=== PATIENT | female | born 1960 | race Caucasian/White ===

== ENCOUNTER 2017-09-26 19:48 | Inpatient (IN) ==
[2017-09-26] MEDS ORDERED: Temazepam 15 MG Capsule PO PRN (19:59)
[2017-09-26] MEDS ORDERED: Morphine Inj 4 MG/ML Vial IV.PUSH PRN (20:01)
--- NOTE | 2017-09-26 22:12 | P.HPIM ---
History of Present Illness Service: [facility]ist Primary Care Physician: Marianna Ramos MD Chief Complaint: Fall with subsequent right upper arm pain History of Present Illness: Mrs. Rios is a 57 year old female with a history of osteoporosis and several fractures, lupus, rheumatoid arthritis, osteoarthritis, and endometrial cancer ( treated with radiation and hysterectomy) who presented to the ER at [facility] complaining of a trip and fall at work resulting in severe right elbow swelling and pain. An x-ray done in the ED, showed a right comminuted fracture of the proximal radius and ulna. Dr. Borjas was the orthopedic physician psychologist educational and she recommended transfer to [facility] in [facility] with consult for Dr. Camacho in a.m. for surgical correction. The patient is seen in the CDU. 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 She states she tripped over the back of her husbands shoe and they both fell with her landing on top. She had immediate pain and inability to bear any weight on the right forearm with disfigurement noted. Denies chest pain, dizziness or syncope prior to fall or hitting her head upon falling. She is reporting a pain level of 10/10, aching right elbow pain. The pain is worse with movement and was relieved fully by IV Fentanyl in [facility] and temporarily relieved with IV Morphine in [facility] but the relief lasted only 45 minutes. She reports taking Hydrocodone 10/325 mg PRN at home and is followed by pain management and quality control lead Dr. Alarcon (partner to Dr. Vásquez) for lupus and rheumatoid arthritis. She is also complaining of bilateral knee pain. Xrays at [facility] showed left knee with degenerative changes and no fracture and right knee with degenerative changes, joint effusion, and no fracture. Abnormal UA with possible UTI at [facility]. She was given one dose of Ceftriaxone in ED. Denies any recent fevers, chills, chest pain, shortness of breath, or urinary frequency, dysuria, or hematuria. - Diagnosis (1) Fracture of proximal end of left radius and ulna Inpatient Certification: I certify that the inpatient services were ordered in accordance with Medicare regulations governing the order. This includes certification that hospital inpatient services are reasonable and necessary and in the case of services not specified as inpatient-only under 42 CFR 419.22(n), that they are appropriately provided as inpatient services in accordance to with the 2-midnight benchmark under 43 CFR 412.3(e) Estimated Total Length of Stay (Days): 3 Plans for Post Hospital Care: Home Review of Systems All other systems reviewed negative except as stated in HPI [facility] - History History Provided By: Patient - Medical History Medical History: Medical History (Last Updated 09/27/17 @ 04:02 by ZAMZAM Isaacs) Endometrial cancer Hx of heartburn Lupus Osteoarthritis Osteoporosis Rheumatoid arthritis Right wrist fracture - Surgical History Surgical History: Surgical History (Last Updated 09/27/17 @ 04:04 by ZAMZAM Isaacs) History of hysterectomy History of open reduction and internal fixation (ORIF) procedure - Family History Family History: Family History (Last Updated 09/27/17 @ 04:00 by ZAMZAM Isaacs) Grandparent Kidney disease Diabetes mellitus Mother Endometrial cancer Father Diabetes mellitus Father Heart disease - Tobacco History Tobacco Use In Past 30 Days: No Smoking Status: Former smoker Tobacco Type: Cigarettes Packs Per Day: 1 Years Smoked: 20 Smoking End Date: 12/17/1998 - Alcohol History How Often Do You Have a Drink Containing Alcohol: Monthly or less (one drink every 3 - 4 months) - Substance Use History Substance History: No History of Abuse - Travel History History of Recent Travel: No Recent Travel in the [facility] Within the Last 8 Weeks: No Medications and Allergies Active Medications: Active Medications Sodium Chloride (Ns Inj) 1,000 mls @ 100 mls/hr IV.CONT .Q10H KELLEY Morphine Sulfate (Morphine Inj) 2 mg IV.PUSH Q3H PRN PRN Reason: Pain 4-10; If Uable To Take Po Ondansetron HCl (Zofran Odt) 4 mg PO Q6H PRN PRN Reason: NAUSEA OR VOMITING Temazepam (Restoril) 15 mg PO HS PRN PRN Reason: INSOMNIA Allergies Allergy/AdvReac Type Severity Reaction Status Date / Time penicillin G Allergy Severe Anaphylaxis Unverified 09/27/17 03:53 Home Medications Medication Instructions Recorded Confirmed Type Fish Oil 09/27/17 History Multi Vitamin 09/27/17 History Vitamin C 09/27/17 History abaloparatide [Tymlos] DAILY NEB 09/27/17 History calcium carbonate [Calcium 600] 600 mg PO BID 09/27/17 09/27/17 History gabapentin 09/27/17 09/27/17 History gabapentin 100 mg PO BID 09/27/17 09/27/17 History glucosamine sulfate 09/27/17 History hydrocodone-acetaminophen 1 tab PO DAILY 09/27/17 09/27/17 History hydroxychloroquine [Plaquenil] 200 mg PO BID 09/27/17 09/27/17 History magnesium 250 mg PO DAILY 09/27/17 09/27/17 History meloxicam 7.5 mg PO DAILY 09/27/17 09/27/17 History methotrexate sodium 9 mg PO QWEEK 09/27/17 09/27/17 History omeprazole magnesium [Prilosec OTC] 20 mg PO DAILY 09/27/17 09/27/17 History prednisone 5 mg PO BID 09/27/17 09/27/17 History timolol 1 drp OPHTHALMIC (EYE) BID 09/27/17 09/27/17 History tofacitinib [Xeljanz] 5 mg PO Q12H 09/27/17 09/27/17 History valacyclovir 1,000 mg PO DAILY 09/27/17 09/27/17 History Exam Vital signs: Vital Signs 09/26/17 20:00 Temperature 98.1 F Pulse Rate 67 Respiratory Rate 16 Blood Pressure 165/87 H Pulse Oximetry 97 - Constitutional mild distress (appears painful), morbidly obese - Routine HEENT Exam Head: Present: normocephalic, atraumatic ENT: Present: mucous membranes moist - Routine Respiratory Exam Present: decreased breath sounds (at bases - secondary to body habitus), CTA bilaterally. Absent: accessory muscle use, respiratory distress, wheezes, crackles - Routine Cardiovascular Exam Present: RRR, S1, S2, murmur (I/ systolic murmur best heard right sternal border, second IC space.). Absent: gallop, rubs - Routine Abdominal Exam Present: soft, normoactive bowel sounds. Absent: tenderness, distended - Routine Extremities Exam Present: pulses intact, normal capillary refill, tenderness (right elbow region) . Absent: cyanosis - Routine Skin Exam Present: intact, warm - Routine Neurological Exam Present: alert, oriented X3, normal speech Results - Labs Labs: WBC 13.3 with left shift at [facility] - records personally reviewed Hgb 12.8, HCT 40.3 Na 139, K+ 4.4, BUN 22, Creatinine 0.56, and glucose 92 Urinalysis with 3+ leukocyte estrace, bacteria, WBCs, RBCs, and many calcium oxylate crystals - Imaging Imaging done in the ED at [facility]: right elbow x-ray showed a right comminuted fracture of the proximal radius and ulna - right knee xray showed degenerative changes, joint effusion, no fracture and left knee showed degenerative changes and no fracture CXR with cardiomegaly but no active pulmonary disease . Caprini VTE Risk Assessment Caprini VTE Risk Assessment: Moderate/High Risk (score >= 2) Caprini Risk Assessment Model: Point Value = 1 Point Value = 2 Point Value = 3 Point Value = 5 Age 41-60 Minor surgery BMI > 25 kg/m2 Swollen legs Varicose veins or History of unexplained or recurrent spontaneous Oral contraceptives or hormone replacement Sepsis (< 1 month) Serious lung disease, including pneumonia (< 1 month) Abnormal pulmonary function Acute myocardial infarction Congestive heart failure (< 1 month) History of inflammatory bowel disease Medical patient at bed rest Age 61-74 Arthroscopic surgery Major open surgery (> 45 min) Laparoscopic surgery (> 45 min) Malignancy Confined to bed (> 72 hours) Immobilizing plaster cast Central venous access Age >= 75 History of VTE Family history of VTE Factor V Leiden Prothrombin [id number] Lupus anticoagulant Anticardiolipin antibodies Elevated serum homocysteine Heparin-induced thrombocytopenia Other congenital or acquired thrombophilia Stroke (< 1 month) Elective arthroplasty Hip, pelvis, or leg fracture Acute spinal cord injury (< 1 month) Prophylaxis Regimen: Total Risk Factor Score Risk Level Prophylaxis Regimen 0-1 Low Early ambulation 2 Moderate Order ONE of the following: *Sequential Compression Device (SCD) *Heparin 5000 units SQ BID 3-4 Higher Order ONE of the following medications: *Heparin 5000 units SQ TID *Enoxaparin/Lovenox 40 mg SQ daily (WT < 150 kg, CrCl > 30 mL/min) *Enoxaparin/Lovenox 30 mg SQ daily (WT < 150 kg, CrCl > 10-29 mL/min) *Enoxaparin/Lovenox 30 mg SQ BID (WT < 150 kg, CrCl > 30 mL/min) AND/OR *Sequential Compression Device (SCD) 5 or more Highest Order ONE of the following medications: *Heparin 5000 units SQ TID (Preferred with Epidurals) *Enoxaparin/Lovenox 40 mg SQ daily (WT < 150 kg, CrCl > 30 mL/min) *Enoxaparin/Lovenox 30 mg SQ daily (WT < 150 kg, CrCl > 10-29 mL/min) *Enoxaparin/Lovenox 30 mg SQ BID (WT < 150 kg, CrCl > 30 mL/min) AND *Sequential Compression Device (SCD) Assessment and Plan - Assessment (1) Fracture of proximal end of left radius and ulna Code(s): S52.102A - Unspecified fracture of upper end of left radius, initial encounter for closed fracture; S52.002A - Unspecified fracture of upper end of left ulna, initial encounter for closed fracture Status: Acute - Plan Mrs. Rios is a 57 year old female with a history of osteoporosis and several fractures, lupus, rheumatoid arthritis, osteoarthritis, and endometrial cancer ( treated with radiation and hysterectomy) who presented to the ER at [facility] complaining of a trip and fall at work resulting in severe right elbow swelling and pain. An x-ray done in the ED, showed a right comminuted fracture of the proximal radius and ulna. Dr. Borjas was the orthopedic physician psychologist educational and she recommended transfer to [facility] in [facility] with consult for Dr. Camacho in a.m. for surgical correction. Abnormal UA was consistent with UTI. Fracture of proximal left ulna and radius - NPO - Dilaudid 1 mg IV q4h PRN pain > 4 - Consult orthopedics - appreciate assistance UTI - repeat UA with C/S if indicated - Ceftriaxone 1 gm IV q24h - Await urine culture results and adjust treatment accordingly Heart murmur on exam, cardiomegaly noted on chest xray report reviewed from [facility] - patient denies history of heart problems or heart murmur - may be transient from high BP noted here - denies history of high bp - bp may be elevated due to pain - if persists, should f/u with pcp outpatient - patient is asymptomatic cardiovascularly DVT prophylaxis - SCDs - chemoprophylaxis contraindicated due to impending surgical repair of fractures . Discussed Condition With: Patient, RN, and Dr. Zacarias
[2017-09-26] MEDS: Sod Chloride 0.9% Inj 1,000 ML IV.CONT SCH (23:10)
[2017-09-26] MEDS: HYDROmorphone PF Inj 2 MG/ML Vial IV.PUSH PRN (23:11)
[2017-09-27 01:31] LABS: Bacteria,Urine Occasional /hpf; Bilirubin,Urine Negative (Negative); Clarity,Urine Hazy (Clear); Color,Urine Yellow (Yellw/Straw); Glucose,Urine (UA) Negative (Negative); Hyaline Casts,Urine 3 /lpf (0-3); Leukocyte Esterase,Urine Small (Negative); Mucus,Urine Few /lpf (Occasional); Nitrite,Urine Negative (Negative); Specific Gravity,Urine 1.021 (1.002-1.035); Squamous Epithelial Cell,Urine 1 /hpf (0-5)
[2017-09-27] MEDS: HYDROmorphone PF Inj 2 MG/ML Vial IV.PUSH PRN (04:46)
[2017-09-27] MEDS ORDERED: Metoprolol Tartrate 25 MG Tablet PO SCH (08:15)
[2017-09-27] MEDS ORDERED: Chlorhexidine Gluconate 2% 1 Pack (2 Cloths) TOPICAL SCH (08:15)
--- NOTE | 2017-09-27 08:29 | MB ---
cc: Mark Camacho MD DATE: 09/27/2017 REASON FOR CONSULTATION: Right proximal ulnar fracture with radial head fracture dislocation. HISTORY OF PRESENT ILLNESS: Jessy is a 57-year-old female who had history of osteoporosis, rheumatoid arthritis, lupus, endometrial cancer. She had a fall. 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 She initially went to [facility]. She was found to have a complex fracture of her right elbow. She was subsequently transferred to [facility] for definitive treatment. She is currently awake and alert in the emergency department. She complains of mild right knee pain. She complains of more severe right elbow pain. Pain is worse with movement and is improved with rest. She denies dizziness, syncope, or loss of consciousness. PAST MEDICAL HISTORY: Illnesses: Reflux, lupus, osteoporosis, rheumatoid arthritis, history of endometrial cancer. ALLERGIES: PENICILLIN. PAST SURGICAL HISTORY: Hysterectomy and ORIF of wrist. MEDICATIONS: 1. Multivitamin. 2. Vitamin C. 3. Tymlos. 4. Gabapentin. 5. Plaquenil. 6. Hydrocodone. 7. Magnesium. 8. Meloxicam. 9. Methotrexate. 10. Omeprazole. 11. Prednisone. 12. Timolol. 13. Valacyclovir. FAMILY HISTORY: Positive for heart disease and diabetes in her father and endometrial cancer in her mother, diabetes in a grandparent. SOCIAL HISTORY: The patient denies alcohol, tobacco or drug use. REVIEW OF SYSTEMS: The patient denies fevers or chills, weight loss, headache, visual changes, hearing loss, chest pain, palpitations, shortness of breath, nausea, vomiting, urinary or bowel changes, neck or back pain, skin rashes, weakness or numbness of extremities, anxiety or depression. She complains of right knee pain and right elbow pain. LABORATORY DATA: The patient's urinary analysis reveals occasional bacteria with small leukocyte esterase. X-RAYS: X-rays of the right elbow were reviewed from [facility]. X-rays reveal a complex right elbow fracture dislocation. There is a comminuted fracture of the proximal ulna with radial head fracture dislocation. PHYSICAL EXAMINATION: GENERAL: The patient is a 57-year-old female. She is awake and alert. She is moderately overweight. She is in no acute distress. VITAL SIGNS: Temperature 98.2, pulse 74, respirations 18, blood pressure 137/83, O2 saturations 95% on room air. HEENT: Head: The patient is normocephalic. Pupils are equal. NECK: Soft, nontender. The trachea is in the midline. ABDOMEN: Soft, nontender, nondistended. EXTREMITIES: Examination of right arm reveals no tenderness around her shoulder, wrist or fingers. She has intact sensation in all fingers. There has good capillary refill in all fingers. She has mild swelling of the elbow. She has pain with any elbow motion. Examination of the left arm reveals no pain with shoulder, elbow and wrist motion. Skin is intact. Radial pulses palpable. Sensation is intact. Examination of right leg reveals no pain with hip or ankle motion. She has mild bruising and swelling of her knee. There appears to be a small joint effusion present. Her knee is stable to varus and valgus stresses. She has a small superficial abrasion on her anterior knee. Sensation is intact in the right foot. Examination of left leg reveals no pain with hip, knee or ankle motion. Skin is intact. Dorsalis pedis pulses palpable. Sensation intact to left foot. IMPRESSION: 1. Rheumatoid arthritis. 2. Lupus. 3. Osteoporosis. 4. Reflux. 5. Right elbow fracture dislocation. PLAN: Treatment options were discussed with the patient. At this point, I would recommend open reduction and internal fixation of the right ulna. She will also need treatment of the right radial head fracture dislocation. I explained to her that we may excise the fracture fragment versus possibly perform open reduction and internal fixation of the fracture fragment versus possible radial head replacement. Risks and benefits of surgery were discussed in depth with the patient and consent was obtained. Risks of surgery including bleeding, infection, injury to arteries, nerves or blood vessels, elbow stiffness, loss of motion, elbow arthritis, painful hardware, wound infection, injury to ulnar nerve, injury to arteries, nerves and blood vessels, weakness, numbness of the hand, as well as medical complications associated with anesthesia were discussed. All questions were answered. I will plan on surgery today. A mid-level provider in my office, nurse practitioner or PA, may see this patient on a follow-up basis and continue to implement the objective of this plan including: Starting or adjusting medications, injections of muscle, tendon, bursa or joints, cast application, orthotic or brace application, physical therapy, further radiographic studies including x-ray, MRI, CT, ultrasounds or bone scan, vascular studies, neurologic studies, or other specialist consultations, and proceeding with surgical management as appropriate. MD ROSALINDA Alcala/JOSEPHINE , 08:01 AM , 08:27 AM
[2017-09-27] MEDS: Sod Chloride 0.9% Inj 1,000 ML IV.CONT SCH (08:45)
[2017-09-27 08:46] LABS: Baso % (Auto) 0.2 % (0.0-2.0); Eos % (Auto) 0.4 % (0.0-4.0); Hematocrit 37.1 % (35.0-46.0); Hemoglobin 12.2 gm/dL (11.6-15.3); Lymph # (Auto) 0.5 th/mm3 (1.0-4.8); Lymph % (Auto) 6.3 % (9.0-44.0); Mean Corpuscular HGB Conc 32.9 % (32.0-36.0); Mean Corpuscular Hemoglobin 31.4 pg (27.0-34.0); Mean Corpuscular Volume 95.4 fL (80.0-100.0); Mono % (Auto) 11.8 % (0.0-8.0); Neut # (Auto) 6.6 th/mm3 (1.8-7.7); Neut % (Auto) 81.3 % (16.0-70.0); Platelet Count 164 th/mm3 (150-450); Red Blood Count 3.89 mil/mm3 (4.00-5.30); White Blood Count 8.1 th/mm3 (4.0-11.0)
[2017-09-27] MEDS: predniSONE 5 MG Tablet PO SCH ×2 (08:49→20:02)
[2017-09-27] MEDS: Magnesium Oxide 400 MG Tablet PO SCH (08:49)
[2017-09-27] MEDS: Gabapentin 100 MG Capsule PO SCH ×2 (08:49→20:02)
[2017-09-27] MEDS: Pantoprazole Sodium 20 MG DR Tablet PO SCH (08:50)
[2017-09-27] MEDS: Timolol 0.25% Drops 5 ML Bottle EACH EYE SCH ×2 (08:50→22:41)
[2017-09-27] MEDS: Calcium Carbonate 500 MG Tablet PO SCH ×2 (08:50→20:02)
[2017-09-27] MEDS: Hydroxychloroquine 200 MG Tablet PO SCH ×2 (08:50→20:02)
[2017-09-27] MEDS: valACYclovir 500 MG Tab PO SCH (08:51)
[2017-09-27] MEDS ORDERED: TOFACITINIB 5 MG PO SCH (09:00)
[2017-09-27] MEDS ORDERED: Sodium Chlor 0.9% Inj 500 ML IV.SIG SCH (09:00)
[2017-09-27 09:16] LABS: Alanine Aminotransferase 34 U/L (10-53)
[2017-09-27 09:17] LABS: Alkaline Phosphatase 48 U/L (45-117)
[2017-09-27 09:18] LABS: Albumin 3.3 g/dL (3.4-5.0); Anion Gap 10 meq/L (5-15); Aspartate Aminotransferase 21 U/L (15-37); Blood Urea Nitrogen 20 mg/dL (7-18); Calcium 8.9 mg/dL (8.5-10.1); Carbon Dioxide 24.3 meq/L (21.0-32.0); Chloride 105 meq/L (98-107); Glomerular Filtration Rate Greater Than 89 mL/min (>89); Glucose,Random 95 mg/dL (74-106); Sodium 139 meq/L (136-145)
[2017-09-27 09:21] LABS: Potassium 4.1 meq/L (3.5-5.1)
--- NOTE | 2017-09-27 09:26 | P.PN ---
Subjective Interval history: Follow up for right radius/ulna fracture, UTI. The patient is seen just prior to going for surgery. She reports continue right arm pain, temporarily relieved by pain medication. Denies any distal RUE numbness/tingling. She reports nausea with an episode of vomiting shortly after receiving IV dilaudid. She states she had morphine and fentanyl at [facility] which did not make her nauseous however did not relieve her pain. She has no other medical complaints at this time including no fever/chills, chest pain, palpitations, shortness of breath, or abdominal complaints. Physical Exam Vital signs: Vital Signs 09/26/17 20:00 09/27/17 00:00 09/27/17 01:33 Temperature 98.1 F 98.4 F Pulse Rate 67 71 Respiratory Rate 16 16 18 Blood Pressure 165/87 H 174/90 H Pulse Oximetry 97 92 L 09/27/17 04:00 09/27/17 06:06 09/27/17 08:00 Temperature 98.2 F 97.9 F Pulse Rate 74 66 Respiratory Rate 18 18 20 Blood Pressure 137/83 176/82 H Pulse Oximetry 95 93 L Intake & Output 09/26/17 09/27/17 09/27/17 18:59 06:59 18:59 Weight 122.016 kg Other: Weight On Admission 122.016 kg Narrative: GENERAL: Well-nourished, well-developed obese middle-aged female patient in [facility]. SKIN: Warm and dry. No rash. HEENT: Normocephalic. Atraumatic. Pupils equal and round. Mucous membranes pink and moist. NECK: Supple. Trachea midline. CARDIOVASCULAR: Regular rate and rhythm. 1/6 systolic murmur. RESPIRATORY: No accessory muscle use. Clear to auscultation. Breath sounds equal bilaterally. GASTROINTESTINAL: Abdomen soft, non-tender, nondistended. Normoactive bowel sounds x4. MUSCULOSKELETAL: No obvious deformities. Extremities without clubbing, cyanosis , or edema. RUE in sling, distal sensation intact with brisk capillary refill. NEUROLOGICAL: Awake and alert. No obvious cranial nerve deficits. Motor grossly within normal limits. Moving all extremities spontaneously. Normal speech. Results - Labs CBC & Chem 7: 09/27/17 08:02 09/27/17 08:02 Laboratory Results - last 24 hr 09/27/17 09/27/17 09/27/17 01:10 08:02 08:02 WBC 8.1 RBC 3.89 L Hgb 12.2 Hct 37.1 MCV 95.4 MCH 31.4 MCHC 32.9 RDW 16.0 Plt Count 164 MPV 8.0 Neut % (Auto) 81.3 H Lymph % (Auto) 6.3 L [place] % (Auto) 11.8 H Eos % (Auto) 0.4 Baso % (Auto) 0.2 Neut # (Auto) 6.6 Lymph # (Auto) 0.5 L [place] # (Auto) 1.0 H Eos # (Auto) 0.0 Baso # (Auto) 0.0 WBC Differential . Differential Comment Auto diff final Sodium 139 Potassium 4.1 Chloride 105 Carbon Dioxide 24.3 Anion Gap 10 BUN 20 H Creatinine 0.58 Estimated GFR Greater than 89 Random Glucose 95 Calcium 8.9 Total Bilirubin 0.5 AST 21 ALT 34 Alkaline Phosphatase 48 Total Protein 6.0 L Albumin 3.3 L Urine Color Yellow Urine Clarity Hazy H Urine pH 5.0 Ur Specific [place] 1.021 Urine Protein Negative Urine Glucose (UA) Negative Urine Ketones Negative Urine Occult Blood Negative Urine Nitrate Negative Urine Bilirubin Negative Urine Urobilinogen Less than 2 Ur Leukocyte Esterase Small H Urine RBC 1 Urine WBC 36 H Ur Squamous Epith Cells 1 Urine Bacteria Occasional H Hyaline Casts 3 Urine Mucus Few H Micro UA Comment Culture indicated Urine Culture Comments Culture indicated Assessment and Plan - Plan 57 year old female with a history of osteoporosis and several fractures, lupus, rheumatoid arthritis, osteoarthritis, and endometrial cancer (treated with radiation and hysterectomy) who presented to the ER at [facility] complaining of a trip and fall at work resulting in severe right elbow swelling and pain. An x-ray done in the ED showed a right comminuted fracture of the proximal radius and ulna. Dr. Borjas was the orthopedic physician legal nurse consultant and she recommended transfer to [facility] in [facility] with consult for Dr. Camacho in a.m. for surgical correction. Abnormal UA was consistent with UTI. Fracture of proximal left ulna and radius - Keep NPO - Dilaudid 1 mg IV q4h PRN pain > 4, zofran prn nausea - Consult orthopedics - plan for surgery today - PT eval UTI: diagnosed on admission at - repeat UA shows small leuks and WBCs - Continue antibiotics with Ceftriaxone 1 gm IV q24h - Await urine culture results and adjust treatment accordingly Heart murmur on exam, cardiomegaly noted on chest xray report reviewed from [facility] - patient denies history of heart problems or heart murmur - may be transient from high BP noted here, denies history of hypertension, BP likely elevated due to pain - if persists, should f/up with pcp as outpatient - patient is asymptomatic cardiovascularly DVT prophylaxis- teds/SCDs - chemoprophylaxis contraindicated due to upcoming surgical repair of fractures Discharge Planning: Discharge pending surgery today, PT eval, and clearance from orthopedics.
[2017-09-27] MEDS ORDERED: Lidocaine PF 1% Inj 5 ML Syringe INFILTRATN ONE (10:48)
[2017-09-27] MEDS ORDERED: Succinylcholine Inj 100 MG/5 ML Syringe IV.PUSH ONE (10:48)
[2017-09-27] MEDS ORDERED: Glycopyrrolate Inj 1 MG/5 ML Syringe IV.PUSH ONE (10:48)
[2017-09-27] MEDS ORDERED: Neostigmine Inj 5 MG/5 ML Syringe IV.PUSH ONE (10:48)
[2017-09-27] MEDS ORDERED: ceFAZolin 2 GM Premix Inj 0 GM/0 ML PIGGYBACK IV.SIG ONE (11:03)
[2017-09-27] MEDS ORDERED: Clindamycin Inj 600 MG/4 ML Vial ONE (12:10)
[2017-09-27] MEDS ORDERED: Bisacodyl 10 MG Supp RECTAL PRN (13:51)
[2017-09-27] MEDS ORDERED: Naloxone Inj 0.4 MG/ML Vial IV.PUSH PRN (13:51)
[2017-09-27] MEDS ORDERED: Post-op Orders (for Pharmacy) OTHER STA (13:51)
[2017-09-27] MEDS ORDERED: Promethazine 25 MG Supp RECTAL PRN (13:51)
[2017-09-27] MEDS ORDERED: Sodium Chlor 0.9% Inj 250 ML IV.SIG SCH (14:00)
--- NOTE | 2017-09-27 14:02 | P.OP ---
Date of procedure: 09/27/17 Procedure: Open treatment of right elbow fracture dislocation, open reduction internal fixation right proximal ulna, treatment of radial head fracture with implant arthroplasty Implants: Stuart proximal ulna plate, Biomet size 7 stem with size 22+12 radial head Surgeon: Mark Lopez MD Rug Clipper: Sheldon Martinez PA-C The surgical procedure was assisted by my physician assistant counsel. My P.A. presence was necessary throughout this case for the manipulation and positioning of the surgical extremity. My P.A. was assisting me throughout the duration of this procedure. The skill set of a physician assistant counsel was medically necessary to complete this procedure. During the surgical case the surgical nurse practitioner was working at the back table and the physician assistant counsel was directly assisting me. Operation and Findings: Patient was seen and evaluated preoperatively. Patient was found to have a displaced intra-articular olecranon fracture with fracture dislocation of the radial head. The risk and benefits of the surgery were discussed in depth and informed consent was obtained. Risk of surgery include bleeding, infection, painful hardware, wound, case, elbow stiffness, loss of motion, elbow arthritis , injuries to arteries nerves or blood vessels, weakness and numbness of hand, as well as medical complications associated with general anesthesia. All questions were answered. Patient was brought to operating room. IV sedation and anesthesia were administered. Patient was placed into a lateral decubitus position. Timeout procedure was performed. IV antibiotics were administered prior to incision. The operative arm was prepped with alcohol followed by Hibiclens and draped in usual sterile fashion. Procedure began with a 6 inch incision over the olecranon and proximal ulna. Subcutaneous tissue dissected with Bovie. Fracture site was visualized. Fascia was elevated around the fracture site. There was mild comminution of the fracture site. Fracture fragments were gently manipulated. A fracture tenaculum was used to aid in reduction. Each fragment keyed in excellent alignment. Multiple K wires were used to hold provisional fixation. A Stuart proximal ulna plate was selected. Plate was provisionally held with K wires 3.5 cortical screws were used to compress plate to bone. Multiple cortical screws were placed in the ulna shaft. Multiple locking screws were placed in the proximal ulna. All screws were predrilled and premeasured for appropriate length. K wires were removed. Next attention was turned to the radial head. The radial head was exposed through the same incision. A separate fascial incision was opened. The radial head fracture was visualized. Approximately 50% of the radial head was comminuted into multiple fracture fragments. The radial head was relatively unstable throughout range of motion. Decision was made to proceed with radial head placement because the fracture fragments were too small for internal fixation. Soft tissue was protected. Oscillating saw was used to cut to the radial neck. The proximal radius was sequentially broached up to size 7. The radial head was sized and found to be 22+12. A trial head was placed onto the stem. The radial head was reduced. Patient had good range of motion with excellent stability. She had full flexion and full extension with no resistance. Trial components were removed. A size 7 Biomet stem was now impacted into the proximal radius. A size 22+12 head was now placed under the stem. Set screw was tightened appropriately. The radial head was again reduced. Patient had full range of motion with good stability. Final fluoroscopy revealed excellent of fractures well-placed hardware. Articular surface appeared to be in near anatomic alignment. Wound was now thoroughly irrigated. Incision was now closed with #1 Vicryl, 3-0 Vicryl, and nury. Sterile dressings were applied. Patient's placed a well molded well-padded splint. Patient was transferred to recovery in stable condition.
[2017-09-27] MEDS ORDERED: *Meperidine Inj 25 MG/ML Vial PERIprocedural Use ONLY ONE (14:38)
[2017-09-27] MEDS ORDERED: fentaNYL Citrate Inj 100 MCG/2 ML Ampul ONE (14:44)
[2017-09-27] MEDS ORDERED: *morphine SULFATE 4 MG/ML PERIprocedure ONLY ONE (15:09)
[2017-09-27] MEDS ORDERED: *morphine SULFATE 10 MG/ML PERIprocedure ONLY ONE (15:25)
--- NOTE | 2017-09-27 15:54 | XR ---
EXAM DATE: 09/27/2017 2:54 PM EDT AGE/SEX: 57 years / Female INDICATIONS: Orif right elbow with radial head replacement. CLINICAL DATA: This is the patient's initial encounter. Patient reports that signs and symptoms have been present for 2 days and indicates a pain score of Nonresponsive. MEDICAL/SURGICAL HISTORY: Non-responsive. Non-responsive. COMPARISON: [facility], XR ELBOW (MIN 3 VIEWS), RIGHT, 01/06/2016. . FINDINGS: Intraoperative images of the elbow show sideplate and osseous screws securing the proximal ulna. Radi al head prostheses. Osseous structures all appear to be intact without fracture or dislocation. CONCLUSION: 1. Sideplate and osseous screws secure a proximal ulnar fracture. 2. Radial head prosthesis. Electronically signed by: Jaunjo Cedeno MD 09/27/2017 3:53 PM EDT
[2017-09-27] MEDS ORDERED: Clindamycin/Dextrose 900 MG/50 ML IVPB IV.SIG SCH (20:00)
[2017-09-27] MEDS: Clindamycin Inj 900 MG in Sodium Chlor 0.9% Inj 100 ML IV.SIG SCH (21:46)
[2017-09-28] MEDS: Senna/Docusate Sodium 8.6/50 MG Tablet PO SCH ×2 (03:02→08:10)
[2017-09-28] MEDS: Clindamycin Inj 900 MG in Sodium Chlor 0.9% Inj 100 ML IV.SIG SCH (04:17)
[2017-09-28 06:08] VITALS: PULSE 74; RESP 16
--- NOTE | 2017-09-28 07:41 | P.PNOP ---
Subjective Interval history: Resting comfortably. Pain is controlled. No new complaints Physical Exam Vital signs: Vital Signs 09/27/17 08:00 09/27/17 14:32 09/27/17 14:45 Temperature 97.9 F 98.4 F Pulse Rate 66 60 65 Respiratory Rate 20 12 19 Blood Pressure 176/82 H 139/63 130/62 Pulse Oximetry 93 L 97 97 09/27/17 15:00 09/27/17 15:01 09/27/17 15:15 Temperature Pulse Rate 59 L 57 L Respiratory Rate 15 20 Blood Pressure 139/63 145/66 H Pulse Oximetry 99 97 96 09/27/17 15:30 09/27/17 15:42 09/27/17 15:45 Temperature Pulse Rate 61 62 Respiratory Rate 18 19 Blood Pressure 146/62 H 149/69 H Pulse Oximetry 94 L 97 95 09/27/17 16:00 09/27/17 16:15 09/27/17 17:00 Temperature Pulse Rate 63 64 61 Respiratory Rate 17 16 15 Blood Pressure 144/67 H 149/65 H 154/70 H Pulse Oximetry 96 95 95 09/27/17 17:30 09/27/17 18:03 09/27/17 20:00 Temperature 98 F 98.9 F 98.9 F Pulse Rate 71 63 76 Respiratory Rate 18 18 16 Blood Pressure 149/70 H 144/65 H 115/58 L Pulse Oximetry 97 96 92 L 09/28/17 00:00 09/28/17 03:02 09/28/17 05:45 Temperature 98.3 F 97.8 F Pulse Rate 76 74 Respiratory Rate 16 3 L 16 Blood Pressure 139/67 147/67 H Pulse Oximetry 95 92 L Intake & Output 09/27/17 09/28/17 09/28/17 18:59 06:59 18:59 Intake Total 2040 / 2040 826 / 826 Output Total 800 / 800 Balance 1240 / 1240 826 / 826 Intake: IV 106 / 106 Cleocin Inj 900 MG In NS Inj 106 / 106 100 ML @ 212 mls/hr IV.SIG Q8H KELLEY Rx#:[id number] Oral 240 / 240 720 / 720 Anesthesia Amount 1800 / 1800 Output: Urine 600 / 600 Estimated Blood Loss 200 / 200 Other: # Voids 3 Date of Last Bowel Movement 07/10/18 07/08/18 # Bowel Movements 0 0 Narrative: GENERAL: Well-nourished, well-developed obese middle-aged female patient in NAD. SKIN: Warm and dry. No rash. HEENT: Normocephalic. Atraumatic. Pupils equal and round. Mucous membranes pink and moist. NECK: Supple. Trachea midline. CARDIOVASCULAR: Regular rate and rhythm. 1/6 systolic murmur. RESPIRATORY: No accessory muscle use. Clear to auscultation. Breath sounds equal bilaterally. GASTROINTESTINAL: Abdomen soft, non-tender, nondistended. Normoactive bowel sounds x4. MUSCULOSKELETAL: No obvious deformities. Extremities without clubbing, cyanosis , or edema. RUE in sling, distal sensation intact with brisk capillary refill. NEUROLOGICAL: Awake and alert. No obvious cranial nerve deficits. Motor grossly within normal limits. Moving all extremities spontaneously. Normal speech. - Routine Extremities Exam Comments: Right upper extremity: Splint intact. Intact sensation over the radial ulnar median nerve distributions with good capillary refills. Full extension extension of all fingers Results - Labs CBC & Chem 7: 09/27/17 08:02 09/27/17 08:02 Laboratory Results - last 24 hr 09/27/17 09/27/17 08:02 08:02 WBC 8.1 RBC 3.89 L Hgb 12.2 Hct 37.1 MCV 95.4 MCH 31.4 MCHC 32.9 RDW 16.0 Plt Count 164 MPV 8.0 Neut % (Auto) 81.3 H Lymph % (Auto) 6.3 L [place] % (Auto) 11.8 H Eos % (Auto) 0.4 Baso % (Auto) 0.2 Neut # (Auto) 6.6 Lymph # (Auto) 0.5 L [place] # (Auto) 1.0 H Eos # (Auto) 0.0 Baso # (Auto) 0.0 WBC Differential . Differential Comment Auto diff final Sodium 139 Potassium 4.1 Chloride 105 Carbon Dioxide 24.3 Anion Gap 10 BUN 20 H Creatinine 0.58 Estimated GFR Greater than 89 Random Glucose 95 Calcium 8.9 Total Bilirubin 0.5 AST 21 ALT 34 Alkaline Phosphatase 48 Total Protein 6.0 L Albumin 3.3 L - Imaging Impressions Elbow X-Ray 09/27/17 00:00 CONCLUSION: 1. Sideplate and osseous screws secure a proximal ulnar fracture. 2. Radial head prosthesis. Assessment and Plan - Assessment and Plan Right olecranon ORIF and right radial head replacement POD 1 Maintain splint and nonweightbearing right upper extremity Sling when out of bed Work on extension flexion of all fingers Discharge today if cleared by physical therapy Follow-up with Dr. Camacho or PA in 2 weeks
[2017-09-28] MEDS: predniSONE 5 MG Tablet PO SCH (08:08)
[2017-09-28] MEDS: Magnesium Oxide 400 MG Tablet PO SCH (08:08)
[2017-09-28] MEDS: Calcium Carbonate 500 MG Tablet PO SCH (08:09)
[2017-09-28] MEDS: Gabapentin 100 MG Capsule PO SCH (08:09)
[2017-09-28] MEDS: Hydroxychloroquine 200 MG Tablet PO SCH (08:09)
[2017-09-28] MEDS: Pantoprazole Sodium 20 MG DR Tablet PO SCH (08:09)
[2017-09-28] MEDS: valACYclovir 500 MG Tab PO SCH (08:10)
--- NOTE | 2017-09-28 08:38 | P.DS ---
Date of admission: 09/26/17 19:48 Primary care physician: Malvin Barth III, MD Attending physician on discharge: Negrito Brewer Anticipated date of discharge: 09/28/17 Brief History from admission: Mrs. Rios is a 57 year old female with a history of osteoporosis and several fractures, lupus, rheumatoid arthritis, osteoarthritis, and endometrial cancer ( treated with radiation and hysterectomy) who presented to the ER at [facility] complaining of a trip and fall at work resulting in severe right elbow swelling and pain. An x-ray done in the ED, showed a right comminuted fracture of the proximal radius and ulna. Dr. Borjas was the orthopedic physician pollution control technician and she recommended transfer to [facility] in [facility] with consult for Dr. Camacho in a.m. for surgical correction. The patient is seen in the CDU. 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 She states she tripped over the back of her husbands shoe and they both fell with her landing on top. She had immediate pain and inability to bear any weight on the right forearm with disfigurement noted. Denies chest pain, dizziness or syncope prior to fall or hitting her head upon falling. She is reporting a pain level of 10/10, aching right elbow pain. The pain is worse with movement and was relieved fully by IV Fentanyl in [facility] and temporarily relieved with IV Morphine in [facility] but the relief lasted only 45 minutes. She reports taking Hydrocodone 10/325 mg PRN at home and is followed by pain management and test analyst Dr. Alarcon (partner to Dr. Vásquez) for lupus and rheumatoid arthritis. She is also complaining of bilateral knee pain. Xrays at [facility] showed left knee with degenerative changes and no fracture and right knee with degenerative changes, joint effusion, and no fracture. Abnormal UA with possible UTI at [facility]. She was given one dose of Ceftriaxone in ED. Denies any recent fevers, chills, chest pain, shortness of breath, or urinary frequency, dysuria, or hematuria. DS: Diagnosis - Discharge Diagnosis (1) Fracture of proximal end of left radius and ulna Status: Acute DS: Medications - Discharge Medications Prescriptions: hydrocodone-acetaminophen 1 tab PO Q4H PRN #18 tab PRN Reason: Acute Pain DS: Summary Hospital Course: Mrs. Rios is a 57 year old female with a history of osteoporosis and several fractures, lupus, rheumatoid arthritis, osteoarthritis, and endometrial cancer ( treated with radiation and hysterectomy) who presented to the ER at [facility] complaining of a trip and fall at work resulting in severe right elbow swelling and pain. An x-ray done in the ED, showed a right comminuted fracture of the proximal radius and ulna. Dr. Borjas was the orthopedic physician pollution control technician and she recommended transfer to [facility] in [facility] with consult for Dr. Camacho in a.m. for surgical correction. Patient also found with abnormal UA, treated for UTI was given ceftriaxone IV. Patient is status post right olecranon ORIF and right radial head replacement by Dr. Camacho. She will follow up with Dr. Camacho in 2 weeks. Sling when out of bed, nonweightbearing status of the right upper extremity, splint maintenance. Patient reports she has been doing well postop, no acute issues. Patient has met maximal benefits of hospitalization. Clinically stable for discharge. - Time Spent with Patient Total time spent providing and/or coordinating discharge services: Less than 30 minutes - Quality: VTE Deep Vein Thrombosis/Pulmonary Embolism Present on Admission: No Exam Vital signs: Vital Signs 09/27/17 14:32 09/27/17 14:45 09/27/17 15:00 Temperature 98.4 F Pulse Rate 60 65 59 L Respiratory Rate 12 19 15 Blood Pressure 139/63 130/62 139/63 Pulse Oximetry 97 97 99 09/27/17 15:01 09/27/17 15:15 09/27/17 15:30 Temperature Pulse Rate 57 L 61 Respiratory Rate 20 18 Blood Pressure 145/66 H 146/62 H Pulse Oximetry 97 96 94 L 09/27/17 15:42 09/27/17 15:45 09/27/17 16:00 Temperature Pulse Rate 62 63 Respiratory Rate 19 17 Blood Pressure 149/69 H 144/67 H Pulse Oximetry 97 95 96 09/27/17 16:15 09/27/17 17:00 09/27/17 17:30 Temperature 98 F Pulse Rate 64 61 71 Respiratory Rate 16 15 18 Blood Pressure 149/65 H 154/70 H 149/70 H Pulse Oximetry 95 95 97 09/27/17 18:03 09/27/17 20:00 07/11/18 00:00 Temperature 98.9 F 98.9 F 98.3 F Pulse Rate 63 76 76 Respiratory Rate 18 16 16 Blood Pressure 144/65 H 115/58 L 139/67 Pulse Oximetry 96 92 L 95 09/28/17 03:02 09/28/17 05:45 Temperature 97.8 F Pulse Rate 74 Respiratory Rate 3 L 16 Blood Pressure 147/67 H Pulse Oximetry 92 L Intake & Output 09/27/17 09/28/17 09/28/17 18:59 06:59 18:59 Intake Total 2040 / 2040 826 / 826 Output Total 800 / 800 Balance 1240 / 1240 826 / 826 Intake: IV 106 / 106 Cleocin Inj 900 MG In NS Inj 106 / 106 100 ML @ 212 mls/hr IV.SIG Q8H KELLEY Rx#:[id number] Oral 240 / 240 720 / 720 Anesthesia Amount 1800 / 1800 Output: Urine 600 / 600 Estimated Blood Loss 200 / 200 Other: # Voids 3 Date of Last Bowel Movement 09/27/17 09/25/17 # Bowel Movements 0 0 Narrative: GENERAL: This is a well-nourished, well-developed patient, in no apparent distress. SKIN: Warm and dry HEENT: Normocephalic. Pupils equal round and reactive. Nose without bleeding. Airway patent. NECK: Trachea midline. No JVD. Supple. CARDIOVASCULAR: Regular rate and rhythm RESPIRATORY: Clear to auscultation. Breath sounds equal bilaterally. No wheezes , rales, or rhonchi. GASTROINTESTINAL: Abdomen soft, non-tender, nondistended. Bowel Sounds normoactive x4. MUSCULOSKELETAL: Extremities without clubbing, cyanosis. Right upper extremity with sling, splint in place, distal sensation intact brisk capillary refill. Mild edema of the fingers. NEUROLOGICAL: Awake and alert. No focal neuro deficit. Moves all extremities. Normal speech. Results Procedures completed during hospitalization: Right olecranon ORIF and right radial head replacement, 09/27/17 Labs on day of discharge: Labs from last 24 hours 09/27/17 09/27/17 08:02 08:02 WBC 8.1 RBC 3.89 L Hgb 12.2 Hct 37.1 MCV 95.4 MCH 31.4 MCHC 32.9 RDW 16.0 Plt Count 164 MPV 8.0 Neut % (Auto) 81.3 H Lymph % (Auto) 6.3 L [place] % (Auto) 11.8 H Eos % (Auto) 0.4 Baso % (Auto) 0.2 Neut # (Auto) 6.6 Lymph # (Auto) 0.5 L [place] # (Auto) 1.0 H Eos # (Auto) 0.0 Baso # (Auto) 0.0 WBC Differential . Differential Comment Auto diff final Sodium 139 Potassium 4.1 Chloride 105 Carbon Dioxide 24.3 Anion Gap 10 BUN 20 H Creatinine 0.58 Estimated GFR Greater than 89 Random Glucose 95 Calcium 8.9 Total Bilirubin 0.5 AST 21 ALT 34 Alkaline Phosphatase 48 Total Protein 6.0 L Albumin 3.3 L - Impressions ITS Impressions Elbow X-Ray 09/27/17 00:00 CONCLUSION: 1. Sideplate and osseous screws secure a proximal ulnar fracture. 2. Radial head prosthesis. Discharge Plan - Discharge Disposition Patient Disposition: Discharge Home - Discharge Condition Condition: Good - Discharge Order Discharge Orders: Discharge Order (Routine); Ordered 09/28/17 Ordered By: Debra Yoder Orthopedic Clear for Discharge (Routine); Ordered 09/28/17 Ordered By: Greg Martinez - Physicians Team Primary Care Provider: Malvin Barth III Attending Provider: Negrito Brewer Other Providers: Arianna Borjas MD ; Mark Camacho MD - Rxs /Orders / Referrals /Forms Prescriptions: New hydrocodone-acetaminophen 5-325 mg Tablet 1 tab PO Q4H PRN (Reason: Acute Pain) Qty: 18 RF: 0 Continue abaloparatide [Tymlos] 80 mcg (3,120 mcg/1.56 mL) Pen Injector DAILY NEB calcium carbonate [Calcium 600] 600 mg calcium (1,500 mg) Tablet 600 mg PO BID Fish Oil gabapentin 100 mg Capsule 100 mg PO BID gabapentin 100 mg Capsule glucosamine sulfate 1,500 mg Powder In Packet hydrocodone-acetaminophen 10-325 mg Tablet 1 tab PO DAILY hydroxychloroquine [Plaquenil] 200 mg Tablet 200 mg PO BID magnesium 250 mg Tablet 250 mg PO DAILY meloxicam 7.5 mg Tablet 7.5 mg PO DAILY methotrexate sodium 10 mg Tablet 9 mg PO QWEEK Multi Vitamin omeprazole magnesium [Prilosec OTC] 20 mg Tablet,Delayed Release (Dr/Ec) 20 mg PO DAILY prednisone 5 mg Tablet 5 mg PO BID timolol 0.25 % Drops 1 drp OPHTHALMIC (EYE) BID tofacitinib [Xeljanz] 5 mg Tablet 5 mg PO Q12H valacyclovir 1 gram Tablet 1,000 mg PO DAILY Vitamin C Referrals: Malvin Barth III, MD [Primary Care Provider] - See Instructions (Follow up 3- 5 days) Mark Camacho MD [Physician] - See Instructions (2 weeks) - Post Discharge Care Plan Care Plan Goals: Discharge patient to home Condition on discharge: Improved Regular Diet as tolerated Ad Rasheeda activity Rx written: Follow-up with primary care physician
[2017-09-28 09:00] VITALS: BP 154/67; TEMP 98.1; O2SAT 96
--- NOTE | 2017-10-03 07:36 | ECG ---
Date Performed: 09/27/2017 Time Performed: 08:57:51 PTAGE: 57 years EKG: Sinus rhythm LOW QRS VOLTAGE IN PRECORDIAL LEADS BORDERLINE ECG PREVIOUS TRACING 07/02/15 @ 13.17.51 Since the previous tracing, no significant change noted DOCTOR: Yoni Spear Interpretating Date/Time 10/03/2017 07:36:24
== END 2017-09-28 10:49 | disposition home or self-care (01) ==
LOC: NEPFCDU → OBSVTOIN 19:48 → N06 09-27 16:20
PROVIDERS: ADMIT Hospitalist; ATTEND Hospitalist
PROC: ORIFHUM (2017-09-27 11:41)